=== PATIENT | male | born 1990 | race Caucasian/White ===

== ENCOUNTER 2017-07-31 06:15 | Day surgery (SDC) | payer BC ==
[~2017-07-31] VITALS: Ht 175.3 cm; Wt 70.8 kg
[~2017-07-31 06:15] MED LIST: Norco 5-325 Ta1 EACH PO; Silvadene20 GM TOP
== END 2017-07-31 11:01 | disposition home or self-care (01) ==
LOC: ORSCSDS 06:15
PROVIDERS: Orthopaedic Surgery
PROC: 0LQ24ZZ Repair Left Shoulder Tendon, Percutaneous Endoscopic Approach (ICD-10-PCS; principal; 2017-07-31 07:30)
PROC: 0RNK4ZZ Release Left Shoulder Joint, Percutaneous Endoscopic Approach (ICD-10-PCS; principal; 2017-07-31 07:30)
DX: M75.112 Incomplete rotator cuff tear or rupture of left shoulder, not specified as traumatic (principal); M75.42 Impingement syndrome of left shoulder; M24.612 Ankylosis, left shoulder
CPT/HCPCS: C1713; J0171; J0690; J1040; J2405; J3010; J7120

== ENCOUNTER 2018-04-23 11:29 | Day surgery (SDC) | payer BC ==
[~2018-04-23] VITALS: Ht 175.3 cm; Wt 70.8 kg
[2018-04-23] MEDS ORDERED: Zanaflex4 M1 (11:44)
== END 2018-04-23 15:30 | disposition home or self-care (01) ==
LOC: ORSCSDS 11:29
PROVIDERS: Orthopaedic Surgery
PROC: 0SBC4ZZ Excision of Right Knee Joint, Percutaneous Endoscopic Approach (ICD-10-PCS; principal; 2018-04-23 12:30)
PROC: 0SQC4ZZ Repair Right Knee Joint, Percutaneous Endoscopic Approach (ICD-10-PCS; principal; 2018-04-23 12:30)
DX: S83.241A Other tear of medial meniscus, current injury, right knee, initial encounter (principal); F17.210 Nicotine dependence, cigarettes, uncomplicated
CPT/HCPCS: C1713; J0171; J0690; J1100; J1885; J2250; J2405; J3301; J7120